=== PATIENT | male | born 1955 | race Asian ===

== ENCOUNTER 2016-09-21 09:46 | Emergency (ER) | payer MEDICARE, OTHER ==
[~2016-09-21] VITALS: Wt 59.0 kg
[~2016-09-21 09:46] MED LIST: BEN25 PO; DIPH25CA6 PO; HC1C30 TOP; HC30CR25 TOP
[2016-09-21] MEDS ORDERED: ACET500C5 PO (10:56)
[2016-09-21] MEDS ORDERED: ACYC800T57 PO (10:56)
--- NOTE | 2016-09-21 11:00 | ERD ---
ER Documentation Chief Complaint Date/Time DATE: 09/21/16 TIME: 10:59 Chief Complaint rash on neck since yesterday. no sob or stridor. 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 Possibly painful although the patient is communicating as he is stable with delayed. There is no history of fevers, vomiting, shortness of breath or chest pain. ROS All systems reviewed and are negative except as per history of present illness. Medications Home Meds Active Scripts Acetaminophen* (Tylophen*) 500 Mg Capsule, 1 CAP PO Q6H Y for PAIN AND OR ELEVATED TEMP, #20 CAP Prov:NILESH LINARES MD 09/21/16 Acyclovir* (Zovirax*) 800 Mg Tablet, 800 MG PO 5 TIMES DAILY for 7 Days, TAB Prov:NILESH LINARES MD 09/21/16 Hydrocortisone* Topical (Hydrocortisone* Topical) 1%-28.35 Gm Cream..g., 1 APPLIC TOP Q6 Y for ITCHING, #1 TUB Prov:AYDEE PRIEST PA-C 03/30/16 Diphenhydramine Hcl* (Benadryl*) 25 Mg Cap, 25 MG PO Q6 Y for ITCHING/RASH, #30 TAB Prov:AYDEE PRIEST PA-C 03/30/16 Hydrocortisone* Topical (Hydrocortisone* Topical) 2.5%-28.3 Gm Cream..g., 1 APPLIC TOP BID, #1 TUB Prov:LEWIS SAHU PA-C 03/02/16 Diphenhydramine Hcl (Benadryl) 25 Mg Cap, 25 MG PO BID for 5 Days, CAP Prov:LEWIS SAHUC 03/02/16 Allergies Allergies: Coded Allergies: No Known Allergy (Unverified , 09/21/16) PMhx/Soc Medical and Surgical Hx: pt denies Surgical Hx Hx Psychiatric Problems: Yes (MENTAL RETARDATION) Hx Miscellaneous Medical Probl: Yes (DEAF ) Hx Alcohol Use: No Hx Substance Use: No Hx Tobacco Use: No Smoking Status: Never smoker Physical Exam Vitals Vital Signs Date Time Temp Pulse Resp B/P Pulse Ox O2 Delivery O2 Flow Rate FiO2 09/21/16 10:01 98.8 79 20 140/81 98 Physical Exam Const: [] Alert, not ill-appearing, acting appropriately for baseline comorbidities. Head: Atraumatic Eyes: Normal Conjunctiva ENT: Normal External Ears, Nose and Mouth. Neck: Full range of motion..~ No meningismus. Resp: Clear to auscultation bilaterally Cardio: Regular rate and rhythm, no murmurs Abd: Soft, non tender, non distended. Normal bowel sounds Skin: No petechiae or rashes. There is a erythematous patch she slightly vesicular lesion on the right lateral neck and right trapezius area. It is in a dermatomal distribution. Back: No midline or flank tenderness Ext: No cyanosis, or edema Neur: Awake and alert Psych: Normal Mood and Affect Procedures/MDM Patient presents with signs and symptoms of herpes zoster. He'll be treated with acyclovir and Tylenol. There is no evidence of sepsis, encephalitis, neurologic deficit.The patient was stable with no new complaints during the ER course. Clinically, there is no current evidence to suggest meningitis, sepsis, acute abdomen, pneumonia, acute coronary syndrome, pulmonary embolism, or any other emergent condition appearing to require further evaluation or hospitalization. The patient should certainly return for any new or worsening symptoms per the aftercare instructions. They should otherwise follow-up with her primary care doctor for reevaluation this week. Departure Diagnosis: Primary Impression: Shingles Herpes zoster complications: without complications Qualified Code: B02.9 - Herpes zoster without complication Condition: Stable Patient Instructions: Shingles (Herpes Zoster) Additional Instructions: Recheck for new or worsening symptoms or with primary care doctor. NILESH LINARES MD Sep 21, 2016 11:00
== END 2016-09-21 11:13 | disposition home or self-care (01) ==
LOC: FTE 09:46
DX: B02.9 Zoster without complications (principal)
CPT/HCPCS: 99283

== ENCOUNTER 2016-12-08 13:57 | Emergency (ER) | payer MEDICARE, OTHER ==
[~2016-12-08] VITALS: Ht 157.5 cm; Wt 53.0 kg
[~2016-12-08 13:57] MED LIST changes: +ACET500C5 PO; +ACYC800T57 PO
[2016-12-08 14:00] VITALS: Ht 157.5 cm; Wt 53.0 kg
--- NOTE | 2016-12-08 15:04 | QN ---
Documentation Comment Medical screening exam initiated. The patient is awaiting ER 1. The patient will be seen by another provider for full workup and disposition. DYAN KHANNA MD December 08, 2016 15:04
[2016-12-08] MEDS ORDERED: SODIUM CHLORIDE 0.9% 1L BAG IV* STA (15:37)
[2016-12-08] MEDS ORDERED: ACET500T76 PO (16:16)
[2016-12-08] MEDS ORDERED: CALC500T91 PO (16:17)
[2016-12-08] MEDS ORDERED: CHOL400T10 PO (16:20)
[2016-12-08 16:26] LABS: ADD SCAN DIFF NO
[2016-12-08 16:31] LABS: ABNORMAL IP MESSAGE 1; HEMATOCRIT 39.9 % (42.0-52.0); MEAN CORPUSCULAR HGB CONC 32.6 g/dl (32.0-37.0); MEAN PLATELET VOLUME 10.1 fl (7.4-10.4); PLATELET COUNT 155 10^3/UL (140-415); RED BLOOD COUNT 4.64 10^6/ul (4.70-6.10); RED CELL DISTRIBUTION WIDTH 13.2 % (11.5-14.5); WHITE BLOOD COUNT 12.5 10^3/ul (4.8-10.8)
[2016-12-08 16:38] VITALS: BP 122/66; PULSE 71; RESP 16
--- NOTE | 2016-12-08 16:39 | RADRPT ---
PROCEDURE: XR Chest. CLINICAL INDICATION: Possible sepsis. TECHNIQUE: Single frontal view of the chest was obtained. COMPARISON: No. FINDINGS: The soft tissues are normal. There is a levoscoliosis of the thoracolumbar junction with a compensa tory dextroscoliosis in the upper third of the thoracic spine. The heart is enlarged. The cardiome diastinal silhouette and hilar structures are normal. The pulmonary vasculature is normal. There is a left-sided aorta. The lungs are mildly hyperinflated. The costophrenic angles are normal. IMPRESSION: 1. Pulmonary hyperinflation with no evidence of active cardiopulmonary disease. 2. Levoscoliosis of the lower thoracic spine. RPTAT:AAJJ Physician Zheng Date Time Electronically viewed and signed by Physician Zheng on 12/08/2016 16:38 /
[2016-12-08 16:44] LABS: ALBUMIN 4.1 g/dl (3.3-4.9); CHLORIDE 101 mmol/L (97-110); INR 0.99; POTASSIUM 4.2 mmol/L (3.5-5.1); PROTIME 13.1 Sec (12.2-14.2); SODIUM 139 mmol/L (135-144)
[2016-12-08 16:45] LABS: PARTIAL THROMBOPLASTIN TIME 32.5 Sec (25.0-35.0)
[2016-12-08 16:46] LABS: CREATININE 0.84 mg/dl (0.61-1.24)
[2016-12-08 16:47] LABS: ALANINE AMINOTRANSFERASE 30 IU/L (13-69); ALBUMIN/GLOBULIN RATIO 1.41; ALKALINE PHOSPHATASE 65 IU/L (42-121); ANION GAP 13 (8-16); ASPARTATE AMINO TRANSFERASE 24 IU/L (15-46); BILIRUBIN,INDIRECT 0.6 mg/dl (0-1.1); BILIRUBIN,TOTAL 0.6 mg/dl (0.2-1.3); BLOOD UREA NITROGEN 18 mg/dl (7-20); CARBON DIOXIDE 29 mmol/L (21-31); GLUCOSE 119 mg/dl (70-220)
[2016-12-08 16:48] LABS: CALCIUM 9.3 mg/dl (8.4-10.2)
[2016-12-08 17:02] LABS: TROPONIN-I < 0.012 ng/ml (0.00-0.12)
[2016-12-08 17:43] LABS: ADD UMIC YES; URINE BILIRUBIN (Dip) NEGATIVE (NEGATIVE); URINE BLOOD (Dip) TRACE (NEGATIVE); URINE COLOR LT. YELLOW (YELLOW); URINE GLUCOSE (Dip) NEGATIVE (NEGATIVE); URINE KETONES (Dip) 15 (NEGATIVE); URINE LEUKOCYTE ESTERASE (Dip) NEGATIVE (NEGATIVE); URINE NITRITE (Dip) NEGATIVE (NEGATIVE); URINE TOTAL PROTEIN (Dip) NEGATIVE (NEGATIVE); URINE UROBILINOGEN (Dip) 0.2 E.U./dL (0.1-1.0)
[2016-12-08 18:08] LABS: BACTERIA,URINE FEW; MUCUS,URINE MODERATE; SQUAMOUS EPITHELIAL CELL,UR RARE; URINE RBCS NONE SEEN /HPF (0)
[2016-12-08 18:12] LABS: LYMPHOCYTES # 0.3 10^3/ul (0.8-2.9); NEUTROPHIL # 12.3 10^3/ul (1.6-7.5)
[2016-12-08 18:13] LABS: PLATELET ESTIMATE PLT APPEAR ADEQUATE
[2016-12-08] MEDS ORDERED: ACETAMINOPHEN 500 MG TAB PO STA (18:15)
--- NOTE | 2016-12-08 18:19 | ERD ---
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 This 61-year-old male presents to the emergency room for evaluation of a fever. According to the patient's caregiver this patient has had a fever over the past day. The patient has not had a cough, vomiting, shortness of breath, or painful or frequent urination. This patient was brought in for further evaluation of this fever. ROS All systems reviewed and are negative except as per history of present illness. Medications Home Meds Active Scripts Hydrocortisone* Topical (Hydrocortisone* Topical) 2.5%-28.3 Gm Cream..g., 1 APPLIC TOP BID, #1 TUB Prov:LEWIS SAHU PA-C 03/02/16 Reported Medications Cholecalciferol* (Vitamin D*) 400 Unit Tablet, 400 UNIT PO QAM, TAB 7:30 AM 12/08/16 Calcium Carbonate ([id number]) 500 Mg Tablet, 500 MG PO BID, TAB 12/08/16 Acetaminophen (PAIN & FEVER) 500 Mg Tablet, 500 MG PO Q6H, TAB 12/08/16 Discontinued Scripts Acetaminophen* (Tylophen*) 500 Mg Capsule, 1 CAP PO Q6H Y for PAIN AND OR ELEVATED TEMP, #20 CAP Prov:NILESH LINARES MD 09/21/16 Acyclovir* (Zovirax*) 800 Mg Tablet, 800 MG PO 5 TIMES DAILY for 7 Days, TAB Prov:NILESH LINARES MD 09/21/16 Hydrocortisone* Topical (Hydrocortisone* Topical) 1%-28.35 Gm Cream..g., 1 APPLIC TOP Q6 Y for ITCHING, #1 TUB Prov:AYDEE PRIEST PA-C 03/30/16 Diphenhydramine Hcl* (Benadryl*) 25 Mg Cap, 25 MG PO Q6 Y for ITCHING/RASH, #30 TAB Prov:AYDEE PRIEST PA-C 03/30/16 Diphenhydramine Hcl (Benadryl) 25 Mg Cap, 25 MG PO BID for 5 Days, CAP Prov:LEWIS SAHU PA-C 03/02/16 Allergies Allergies: Coded Allergies: No Known Allergy (Unverified , 12/08/16) PMhx/Soc History of Surgery: Yes (R Hip) Anesthesia Reaction: No Hx Neurological Disorder: Yes (PDD) Hx Respiratory Disorders: No Hx Cardiac Disorders: No Hx Psychiatric Problems: No Hx Miscellaneous Medical Probl: No Hx Alcohol Use: No Hx Substance Use: No Hx Tobacco Use: No Smoking Status: Never smoker Physical Exam Vitals Vital Signs Date Time Temp Pulse Resp B/P Pulse Ox O2 Delivery O2 Flow Rate FiO2 12/08/16 16:38 0 12/08/16 16:38 71 16 122/66 100 Room Air 12/08/16 14:00 100.1 96 18 126/71 96 Physical Exam INITIAL VITAL SIGNS: Reviewed by me GENERAL: The patient is well developed and appropriate for usual state of health in no apparent distress HEENT: Pupils equal, round, and reactive to light. EOMI. There is no scleral icterus. NECK: C-spine is soft and supple, there is no meningismus. There is no cervical lymphadenopathy. LUNGS: Clear to auscultation bilaterally. There are no rales, wheezes or rhonchi. HEART: Regular rate and rhythm, no murmurs, clicks, rubs or gallops. ABDOMEN: Soft, non-tender, non-distended. There are bowel sounds in all four quadrants. No rebound or guarding. EXTREMITIES: There is no peripheral cyanosis or edema. No focal swelling or erythema. NEUROLOGICAL: The patient moves all four extremities with 5/5 strength. Cranial nerves II - XII are intact. Normal gait. SKIN: There is no apparent rash or petechiae. HEME/LYMPHATIC: There is no evidence of excessive bruising or lymphedema. PSYCHIATRIC: The patient does not appear anxious or depressed. Result Diagram: 12/08/16 1600 12/08/16 1600 Results 24 hrs Laboratory Tests Test 12/08/16 16:00 12/08/16 17:20 White Blood Count 12.510^3/ul Red Blood Count 4.6410^6/ul Hemoglobin 13.0g/dl Hematocrit 39.9% Mean Corpuscular Volume 86.0fl Mean Corpuscular Hemoglobin 28.0pg Mean Corpuscular Hemoglobin Concent 32.6g/dl Red Cell Distribution Width 13.2% Platelet Count 17139^3/UL Mean Platelet Volume 10.1fl Neutrophils % 98.0% Lymphocytes % 2.0% Neutrophils # 12.310^3/ul Lymphocytes # 0.310^3/ul Platelet Estimate PLT APPEAR ADEQUATE Prothrombin Time 13.1Sec Prothrombin Time Ratio 1.0 INR International Normalized Ratio 0.99 Activated Partial Thromboplast Time 32.5Sec Sodium Level 139mmol/L Potassium Level 4.2mmol/L Chloride Level 101mmol/L Carbon Dioxide Level 29mmol/L Anion Gap 13 Blood Urea Nitrogen 18mg/dl Creatinine 0.84mg/dl Glucose Level 119mg/dl Lactic Acid Level 1.1mmol/L Calcium Level 9.3mg/dl Total Bilirubin 0.6mg/dl Direct Bilirubin 0.00mg/dl Indirect Bilirubin 0.6mg/dl Aspartate Amino Transf (AST/SGOT) 24IU/L Alanine Aminotransferase (ALT/SGPT) 30IU/L Alkaline Phosphatase 65IU/L Troponin I < 0.012ng/ml Total Protein 7.0g/dl Albumin 4.1g/dl Globulin 2.90g/dl Albumin/Globulin Ratio 1.41 Urine Color LT. YELLOW Urine Clarity CLEAR Urine pH 6.0 Urine Specific [place] <=1.005 Urine Ketones 15 Urine Nitrite NEGATIVE Urine Bilirubin NEGATIVE Urine Urobilinogen 0.2 E.U./dL Urine Leukocyte Esterase NEGATIVE Urine Microscopic RBC NONE SEEN/HPF Urine Microscopic WBC 0-2/HPF Urine Squamous Epithelial Cells RARE Urine Bacteria FEW Urine Mucus MODERATE Urine Hemoglobin TRACE Urine Glucose NEGATIVE% Urine Total Protein NEGATIVE Current Medications Medications (Trade) Dose Ordered Sig/Pa Route PRN Reason Start Time Stop Time Status Last Admin Dose Admin Sodium Chloride (NS) 1,640 ml BOLUS OVER 2 HOURS STAT IV* 12/08/16 15:37 12/08/16 15:38 DC 12/08/16 16:37 Procedures/MDM EKG: Rate/Rhythm: [Normal Sinus Rhythm] QRS, ST, T-waves: [No changes consistent w/ acute ischemia] Impression: [No evidence of ischemia or arrhythmia] Chest X-ray 1V Interpreted by me: Soft Tissue: No acute abnormalities Bones: No acute abnormalities Mediastinum/Cardiac Silhouette/Lungs: [No acute abnormalities] This 61-year-old male presents to the emergency room for evaluation of fever. When I evaluated this patient he was afebrile but did have a temperature of 100.1F. This patient had no tachycardia, no hypotension. A septic workup was started on this patient. He was given 30 cc/mg of IV normal saline. Chest x- ray is clear, the patient's urinalysis is also normal. He has a slight leukocytosis of 12.5 however there is no source of infection. This patient's symptoms are likely viral in nature. The patient was given Tylenol in the emergency room for his fever. He was given 30 cc/kg of IV normal saline. Pulmonary evaluation the patient has no signs of decompensation. I advised the patient's caregiver he likely has a viral syndrome and to keep the patient hydrated. The patient's caregiver is comfortable taking the patient home at this time and advised to return immediately to the ER if he develops any worsening symptoms or decompensation and she verbalized understanding Departure Diagnosis: Primary Impression: Fever Additional Impression: Generalized weakness Condition: Stable ANTONI ARANGO DO December 08, 2016 18:19
== END 2016-12-08 18:32 | disposition home or self-care (01) ==
LOC: E/R 13:57
DX: R50.9 Fever, unspecified (principal); R53.1 Weakness; F84.0 Autistic disorder; R07.9 Chest pain, unspecified
CPT/HCPCS: 71010; 80053; 81001; 81003; 83605; 84484; 85025; 85610; 85730; 87040; 87086; 99285; J7030; 93005

== ENCOUNTER 2017-03-03 00:24 | Emergency (ER) | payer MEDICARE, OTHER ==
[~2017-03-03] VITALS: Ht 167.6 cm; Wt 53.5 kg
[~2017-03-03 00:24] MED LIST changes: -ACET500C5 PO; +ACET500T76 PO; -ACYC800T57 PO; -BEN25 PO; +CALC500T91 PO; +CHOL400T10 PO; -DIPH25CA6 PO; -HC1C30 TOP
[2017-03-03 00:27] VITALS: Ht 167.6 cm; Wt 53.5 kg
[2017-03-03] MEDS ORDERED: IBUP400T22 PO (04:45)
--- NOTE | 2017-03-03 04:54 | RADRPT ---
PROCEDURE: XR Right Hip. CLINICAL INDICATION: Pain TECHNIQUE: AP and lateral views of the right hip were performed. COMPARISON: None. FINDINGS: Right hip arthroplasty. No acute fracture or dislocation is seen. Likely small phlebolith in the ri ght lower pelvis. Ring-like calcific appearing density in the soft tissues anterior lateral upper r ight thigh which could represent an opaque suture measuring 1.3 x 0.8 cm. Small rounded calcific de nsities projected over right scrotum. IMPRESSION: Right hip arthroplasty. No acute abnormality seen. Please see above. RPTAT: HJES .Satya Nettles MD, MD Date Time Electronically viewed and signed by .Satya Nettles MD, MD on 03/03/2017 04:54 .S/
--- NOTE | 2017-03-03 04:56 | RADRPT ---
PROCEDURE: XR Chest. CLINICAL INDICATION: Pain TECHNIQUE: Single frontal view of the chest was obtained COMPARISON: 12/08/2016 FINDINGS: The heart and mediastinum are within normal limits. The lungs are clear. There is no pleural effusion or pneumothorax. S-shaped curvature of thoracic spine again seen. IMPRESSION: No acute disease. Please see above. RPTAT: HJES .Satya Nettles MD, MD Date Time Electronically viewed and signed by .Satya Nettles MD, on 03/03/2017 04:55 .S/
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
== END 2017-03-03 05:08 | disposition home or self-care (01) ==
LOC: FTE 00:24
DX: S76.011A Strain of muscle, fascia and tendon of right hip, initial encounter (principal); R07.9 Chest pain, unspecified; V49.50XA Passenger injured in collision with unspecified motor vehicles in traffic accident, initial encounter
CPT/HCPCS: 71010; 73510